=== PATIENT | male | born 1950 | race Hispanic/Latino ===

== ENCOUNTER 2019-06-18 06:33 | Day surgery (SDC) | payer OTHER ==
[~2019-06-18] VITALS: Ht 167.6 cm; Wt 84.4 kg
[~2019-06-18 06:33] MED LIST: AMOX500C2 PO; FERS325 PO; LISI1TAB28 PO; OMEP40CA13 PO; SODIUM CHLORIDE 0.9% 1000ML 1,000 ML IV ONE
[2019-06-18 07:11] VITALS: BP 131/61
[2019-06-18] MEDS ORDERED: LIDOCAINE HCL 1% 20 ML VIAL ONE (07:57)
[2019-06-18] MEDS ORDERED: PROPOFOL 10 MG/ML 20ML VIAL IV ONE (07:57)
[2019-06-18 08:11] VITALS: BP 91/51
[2019-06-18] MEDS ORDERED: PHENYLEPHRINE HCL 10 MG/ML 1ML VIAL IV ONE (08:11)
[2019-06-18 08:16] VITALS: BP 91/48
[2019-06-18 08:21] VITALS: BP 100/48
[2019-06-18 08:26] VITALS: BP 104/57
[2019-06-18 08:31] VITALS: BP 104/58
--- NOTE | 2019-06-18 08:40 | NUR ---
dc pt dc home via [place],no distress noted. pt denied any pain or discomforts.pt accompanied by spouse
== END 2019-06-18 08:40 | disposition home or self-care (01) ==
LOC: ENDO 06:33 → DAH 06:33 → ENDO 08:40
PROVIDERS: ATTEND Internal Medicine Gastroenterology
DX: C20 Malignant neoplasm of rectum (principal); C21.8 Malignant neoplasm of overlapping sites of rectum, anus and anal canal; D50.9 Iron deficiency anemia, unspecified; I10 Essential (primary) hypertension; F41.9 Anxiety disorder, unspecified; Z79.899 Other long term (current) drug therapy; Z79.2 Long term (current) use of antibiotics; Z87.891 Personal history of nicotine dependence; Z82.49 Family history of ischemic heart disease and other diseases of the circulatory system; Z82.3 Family history of stroke
CPT/HCPCS: 45341; 93005; A4215; A4221; A4222; A4223; A4606; A4620; A4663; J2370; J2704; J7030